=== PATIENT | male | born 2000 | race African-American/Black ===

== ENCOUNTER 2022-11-23 09:52 | Emergency (ER) | payer OTHER ==
[~2022-11-23] VITALS: Ht 177.8 cm; Wt 98.0 kg
[2022-11-23] MEDS ORDERED: IBUP-2029 MT (11:06)
[2022-11-23] MEDS ORDERED: METH-653 MT (11:06)
[2022-11-23 11:42] VITALS: BP 123/48
== END 2022-11-23 13:13 | disposition home or self-care (01) ==
LOC: ER 13:12
DX: S29.012A Strain of muscle and tendon of back wall of thorax, initial encounter (principal); V49.49XA Driver injured in collision with other motor vehicles in traffic accident, initial encounter; Y93.89 Activity, other specified; Y92.89 Other specified places as the place of occurrence of the external cause; Y99.8 Other external cause status
CPT/HCPCS: 99283